=== PATIENT | female | born 1995 | race Caucasian/White ===

== ENCOUNTER 2018-07-21 11:02 | Emergency (ER) | payer OTHER ==
[~2018-07-21] VITALS: Ht 162.6 cm; Wt 52.3 kg
[2018-07-21 11:11] VITALS: BP 130/60
[2018-07-21] MEDS ORDERED: IBUPROFEN 600 MG TABLET PO ONE (13:30)
[2018-07-21] MEDS ORDERED: DiphenhydrAMINE/ZINC ACET 30 GM CREAM TP ONE (13:30)
[2018-07-21] MEDS ORDERED: MethylPREDNISolone 4 MG TABLET PO ONE (13:30)
[2018-07-21] MEDS ORDERED: DiphenhydrAMINE HCL 25 MG CAPSULE PO ONE (13:30)
[2018-07-21] MEDS ORDERED: CEPHALEXIN MONOHYDRATE 500 MG CAPSULE PO ONE (13:30)
[2018-07-21] MEDS ORDERED: PredniSONE 10 MG TABLET PO ONE (14:00)
== END 2018-07-21 14:42 | disposition home or self-care (01) ==
LOC: EMS 11:03
DX: S50.362A Insect bite (nonvenomous) of left elbow, initial encounter (principal); L03.114 Cellulitis of left upper limb; Z98.890 Other specified postprocedural states; W57.XXXA Bitten or stung by nonvenomous insect and other nonvenomous arthropods, initial encounter; Y93.89 Activity, other specified; Y92.89 Other specified places as the place of occurrence of the external cause; Y99.8 Other external cause status
CPT/HCPCS: 99284; J7512; J7509

== ENCOUNTER 2019-06-30 12:36 | Emergency (ER) | payer OTHER ==
[~2019-06-30] VITALS: Ht 162.6 cm; Wt 63.6 kg
[2019-06-30] MEDS ORDERED: DEXAMETHASONE 4 MG TABLET PO ONE (13:30)
[2019-06-30] MEDS ORDERED: PRAMOXINE HCL/BENZYL ALCOHOL 1% 35 GM GEL TP ONE (13:30)
[2019-06-30] MEDS ORDERED: LORATADINE 10 MG TABLET PO ONE (13:30)
[2019-06-30 13:47] VITALS: BP 126/75
== END 2019-06-30 13:53 | disposition home or self-care (01) ==
LOC: EMS 12:37
DX: S70.361A Insect bite (nonvenomous), right thigh, initial encounter (principal); S70.362A Insect bite (nonvenomous), left thigh, initial encounter; L08.9 Local infection of the skin and subcutaneous tissue, unspecified; W57.XXXA Bitten or stung by nonvenomous insect and other nonvenomous arthropods, initial encounter; Y93.89 Activity, other specified; Y92.89 Other specified places as the place of occurrence of the external cause; Y99.8 Other external cause status
CPT/HCPCS: 99284; J8540

== ENCOUNTER 2021-02-22 11:10 | Emergency (ER) | payer OTHER ==
[~2021-02-22] VITALS: Ht 167.6 cm; Wt 68.2 kg
[2021-02-22] MEDS ORDERED: SERT-158 PO (11:21)
[2021-02-22] MEDS ORDERED: NORE-8 PO (11:21)
[2021-02-22 13:54] LABS: BASOPHILS % (AUTO) 0.9 % (0.0-2.0); EOSINOPHILS % (AUTO) 1.8 % (1.0-6.0); HEMATOCRIT 40.6 % (36-46); HEMOGLOBIN 13.5 g/dL (12.0-16.0); LYMPHOCYTES # (AUTO) 2.5 K/uL (1.0-4.8); LYMPHOCYTES % (AUTO) 34.7 % (22.0-44.0); MEAN CORPUSCULAR HEMOGLOBIN 29.8 pg (26.0-34.0); MEAN CORPUSCULAR HGB CONC 33.2 G/dL (31.0-37.0); MEAN CORPUSCULAR VOLUME 90 fL (80-100); MONOCYTES # (AUTO) 0.7 K/uL (0.1-1.0); MONOCYTES % (AUTO) 9.4 % (2.0-9.0); NEUTROPHILS # (AUTO) 3.8 K/uL (1.8-7.7); NEUTROPHILS % (AUTO) 53.2 % (40.0-70.0); PLATELET COUNT (AUTO) 302 K/uL (150-450); RED BLOOD CELL COUNT(AUTO) 4.52 MIL/uL (4.00-5.20); RED CELL DISTRIBUTION WIDTH 13.5 % (11.5-14.5)
[2021-02-22 13:57] LABS: ANION GAP 6 mmol/L (8-16); CALCIUM, TOTAL 8.7 mg/dL (8.8-10.5); CARBON DIOXIDE 29 mmol/L (22-29); CHLORIDE 103 mmol/L (98-107); GLOMERULAR FILTR. RATE CALC > 60 mL/min (>60); GLUCOSE,RANDOM 101 mg/dL (70-110); POTASSIUM 3.8 mmol/L (3.5-5.1); SODIUM SERUM 138 mmol/L (136-145); UREA NITROGEN, BLOOD 11 mg/dL (7-18)
[2021-02-22] MEDS ORDERED: FAMOTIDINE 20 MG TABLET PO ONE (14:00)
[2021-02-22] MEDS ORDERED: MAG HYDROX/AL HYDROX/SIMETH 30 ML SUSP UDCUP PO ONE (14:00)
[2021-02-22 14:04] LABS: PROTHROMBIN TIME 10.5 SEC (9.4-11.6)
[2021-02-22 14:18] VITALS: BP 112/66
[2021-02-22 14:22] LABS: ALANINE AMINOTRANSFERASE 38 U/L (12-78); ALBUMIN 3.7 g/dL (3.4-5.0); ALKALINE PHOSPHATASE 75 U/L (46-116); ASPARTATE AMINOTRANSFERASE 27 U/L (15-37); BILIRUBIN,TOTAL 0.4 mg/dL (0.1-1.0); CREATINE KINASE, TOTAL ONLY 88 U/L (26-192); LIPASE 127 U/L (73-393); TOTAL PROTEIN, SERUM 7.5 g/dL (6.4-8.2)
[2021-02-22 15:17] LABS: APPEARANCE,URINE CLOUDY (CLEAR); BILIRUBIN,URINE NEGATIVE (NEGATIVE); GLUCOSE, URINE (UA) NEGATIVE (NEGATIVE); KETONES,URINE NEGATIVE (NEGATIVE); LEUKOCYTE ESTERASE ,URINE NEGATIVE (NEGATIVE); NITRATE,URINE NEGATIVE (NEGATIVE); OCCULT BLOOD,URINE NEGATIVE (NEGATIVE); PH,URINE 7.5 (5.0-8.0); PROTEIN,URINE NEGATIVE (NEGATIVE); UROBILINOGEN,URINE 0.2 mg/dL (<=1.0)
== END 2021-02-22 15:01 | disposition home or self-care (01) ==
LOC: EMS 11:14
DX: K21.9 Gastro-esophageal reflux disease without esophagitis (principal); R79.1 Abnormal coagulation profile; F32.9 Major depressive disorder, single episode, unspecified
CPT/HCPCS: 71045; 80053; 81003; 82550; 83690; 84484; 84703; 85025; 85610; 85730; 93005; 99285; 36415-L1; 36415-TC